=== PATIENT | female | born 1950 | race Two or more races ===

== ENCOUNTER 2023-07-12 06:55 | Day surgery (SDC) | payer OTHER ==
[2023-07-12] MEDS ORDERED: DIPHENHYDRAMINE HCL 50 MG/ML VIAL 1ML IV ONE (11:45)
[2023-07-12] MEDS ORDERED: fentaNYL CITRATE 50 MCG/ML AMPUL IV PUSH ONE (11:45)
[2023-07-12] MEDS ORDERED: MIDAZOLAM HCL 2 MG/2 ML VIAL IV ONE (11:45)
== END 2023-07-12 13:00 | disposition home or self-care (01) ==
LOC: CIR.AMB 06:55 → AMB-ENDOS 06:55 → CIR.AMB 13:00 → AMB-ENDOS 13:00
PROVIDERS: ATTEND Surgery
DX: D12.6 Benign neoplasm of colon, unspecified (principal); D12.4 Benign neoplasm of descending colon; D12.0 Benign neoplasm of cecum; D12.2 Benign neoplasm of ascending colon; K62.1 Rectal polyp; Z88.6 Allergy status to analgesic agent